=== PATIENT | male | born 1950 | race Caucasian/White ===

== ENCOUNTER → 2018-03-08 | Outpatient (CLI) | payer MEDICARE | END | disposition home or self-care (01) | LOC: RAD 11:12 | DX: M51.37 Other intervertebral disc degeneration, lumbosacral region (principal) ==

== ENCOUNTER → 2018-03-24 | Outpatient (CLI) | payer MEDICARE | END | disposition home or self-care (01) | LOC: CT 15:00 | DX: M47.896 Other spondylosis, lumbar region (principal); M43.16 Spondylolisthesis, lumbar region; M48.14 Ankylosing hyperostosis [Forestier], thoracic region; G95.29 Other cord compression; M41.84 Other forms of scoliosis, thoracic region; M51.26 Other intervertebral disc displacement, lumbar region ==

== ENCOUNTER → 2018-04-14 | Outpatient (CLI) | payer MEDICARE ==
[2018-04-14 09:08] LABS: BILIRUBIN NEGATIVE (NEGATIVE); BLOOD NEGATIVE (NEGATIVE); CLARITY CLEAR (CLEAR); COLOR YELLOW (YELLOW); GLUCOSE NEGATIVE (NEGATIVE); KETONE NEGATIVE (NEGATIVE); LEUKO ESTERASE NEGATIVE (NEGATIVE); NITRITE NEGATIVE (NEGATIVE); UROBILINOGEN 0.2 E.U./dl (0.2-1.0)
[2018-04-14 09:08] LABS: BASO # 0.1 10*3/uL (0.0-0.1); EOS # 0.6 10*3/uL (0.0-0.4); EOS % 7.8 % (1.0-4.0); HEMATOCRIT 40.8 % (42.0-52.0); HEMOGLOBIN 13.6 g/dl (14.0-18.0); LYMPH # 1.8 10*3/uL (1.3-4.4); MEAN CELL VOLUME 94.9 fl (80.0-94.0); MEAN CORPUSCULAR HGB 31.6 pg (27.0-31.0); MEAN CORPUSCULAR HGB CONC 33.3 g/dl (33.0-37.0); MEAN PLATELET VOLUME 11.5 fl (9.6-12.3); MONO # 0.6 10*3/uL (0.1-1.0); MONO % 7.9 % (3.0-9.0); NEUT # 4.1 10*3/uL (2.3-7.9); PLATELET COUNT AUTOMATED 177 10*3/uL (130-400); RED CELL DISTRI WIDTH 13.5 % (0-14.5); WHITE BLOOD COUNT 7.1 10*3/uL (4.8-10.8)
[2018-04-14 09:15] LABS: WBC 0-2 wbc/hpf (0-5)
[2018-04-14 09:22] LABS: ALBUMIN 3.6 gm/dl (3.1-4.5); ALKALINE PHOSPHATASE 63 U/L (45-117); BUN 13 mg/dl (7-24); CHLORIDE 105 mmol/L (98-107); CREATININE 0.68 mg/dL (0.70-1.30); POTASSIUM 4.2 mmol/L (3.5-5.1); SGOT/AST 23 IU/L (3-35); SGPT/ALT 24 U/L (12-78); SODIUM 139 mmol/L (136-145); TOTAL PROTEIN 7.1 gm/dL (6.4-8.2)
== END | disposition home or self-care (01) ==
LOC: LAB 08:47 → CT 09:00
PROVIDERS: Urology
DX: Z12.5 Encounter for screening for malignant neoplasm of prostate (principal); N39.0 Urinary tract infection, site not specified; D40.0 Neoplasm of uncertain behavior of prostate; I10 Essential (primary) hypertension; N20.0 Calculus of kidney; K57.30 Diverticulosis of large intestine without perforation or abscess without bleeding

== ENCOUNTER → 2018-05-05 | Day surgery (SDC) | payer MEDICARE ==
[~2018-05-05] VITALS: Ht 172.7 cm; Wt 86.2 kg
[~2018-05-05] MED LIST: ZESTORETIC 10-1 EACH PO
--- NOTE | ~2018-05-05 | O ---
[place], [place] OPERATIVE NOTE NAME: PRINCE IZQUIERDO UNIT #: [id number] ROOM: DOCTOR: RUTH OROURKE MD BIRTHDATE: [birth year] DOS: 05/05/2018 GASTROENDOSCOPIC REPORT INDICATIONS: The patient is a 67-year-old, undergoing colonic screening. ALLERGIES: To no known medications. PAST MEDICAL HISTORY: Hypertension. PAST SURGICAL HISTORY: Skin cancer. MEDICATIONS: As reviewed. PROCEDURE: Today's procedure part of investigation is colonoscopy plus snare and piecemeal polypectomy, both. PREMEDICATION: Propofol. SCOPE: Olympus folding colonoscope 10L video. REPORT: After putting the patient in left lateral position and application of lubricant to the scope, the scope was introduced under direct visualization, advanced through the length of colon without difficulty. Base of the cecum was explored. Appendiceal orifice was identified, ileocecal valve was defined.. Sessile polypoid lesion in the sigmoid colon with ____ a large polypoid lesion with the snare was polypectomized. This was on top of a prominent fold. Tattoo marking of the fold also was done for future reference, and the patient extubated, tolerated procedure well. IMPRESSION: Multi-colonic polyps, status post piecemeal polypectomy, status post snare polypectomy. Supportive management otherwise. High fiber diet. Follow-up colonoscopy in 10 years unless patient has symptoms for which follow-up should be sooner. I thank you very much indeed. [place], [place] OPERATIVE NOTE NAME: PRINCE IZQUIERDO UNIT #: [id number] ROOM: DOCTOR: RUTH OROURKE MD BIRTHDATE: [birth year] RUTH OROURKE MD CM:OPRECORD:OPERATIVE NOTE [id number] RUTH OROURKE MD 05/15/18 [id number]
[2018-05-05 12:00] VITALS: BP 136/92
[2018-05-05 13:25] VITALS: BP 115/70
[2018-05-05 13:40] VITALS: BP 135/87
[2018-05-05 13:53] VITALS: BP 135/83
== END | disposition home or self-care (01) ==
LOC: SDC 05-02 11:00
DX: Z12.11 Encounter for screening for malignant neoplasm of colon (principal); K62.1 Rectal polyp; D12.5 Benign neoplasm of sigmoid colon; I10 Essential (primary) hypertension; J45.909 Unspecified asthma, uncomplicated; F17.210 Nicotine dependence, cigarettes, uncomplicated; Z98.890 Other specified postprocedural states; Z85.828 Personal history of other malignant neoplasm of skin; Z79.899 Other long term (current) drug therapy; Z82.49 Family history of ischemic heart disease and other diseases of the circulatory system

== ENCOUNTER → 2020-06-25 | Outpatient (CLI) | payer MEDICARE ==
[2020-06-25 11:03] LABS: HEMATOCRIT 45.4 % (42.0-52.0); MEAN CELL VOLUME 94.6 fl (80.0-94.0); MEAN CORPUSCULAR HGB 31.3 pg (27.0-31.0); MEAN PLATELET VOLUME 12.4 fl (9.6-12.3); RED BLOOD COUNT 4.8 10*6/uL (4.50-5.90); RED CELL DISTRI WIDTH 12.8 % (0-14.5); WHITE BLOOD COUNT 5.3 10*3/uL (4.8-10.8)
[2020-06-25 11:28] LABS: ALBUMIN 3.6 gm/dl (3.1-4.5); ALKALINE PHOSPHATASE 57 U/L (45-117); BUN 15 mg/dl (7-24); CHLORIDE 108 mmol/L (98-107); CHOLESTEROL 178 mg/dL (<200); CREATININE 0.87 mg/dL (0.70-1.30); HDL CHOLESTEROL 50 mg/dl (40-60); LDL CHOLESTEROL 115 mg/dL (9-159); POTASSIUM 4.1 mmol/L (3.5-5.1); SGOT/AST 20 IU/L (3-35); SGPT/ALT 23 U/L (12-78); SODIUM 136 mmol/L (136-145); TOTAL PROTEIN 7.5 gm/dL (6.4-8.2); TRIGLYCERIDES 64 mg/dl (<150); VLDL CHOLESTEROL 13 mg/dL (6-40)
== END | disposition home or self-care (01) ==
LOC: LAB 10:20
PROVIDERS: Registered Nurse Flight
DX: Z12.5 Encounter for screening for malignant neoplasm of prostate (principal); J44.9 Chronic obstructive pulmonary disease, unspecified; I10 Essential (primary) hypertension; Z13.220 Encounter for screening for lipoid disorders; Z72.0 Tobacco use

== ENCOUNTER → 2023-01-25 | Outpatient (CLI) | payer MEDICARE | END | disposition home or self-care (01) | LOC: RAD 09:28 | PROVIDERS: ATTEND Internal Medicine | DX: M17.0 Bilateral primary osteoarthritis of knee (principal) ==

== ENCOUNTER → 2024-07-05 | Outpatient (CLI) | payer MEDICARE | END | disposition home or self-care (01) | LOC: RAD 12:06 | PROVIDERS: ATTEND Nurse Practitioner Family | DX: M47.816 Spondylosis without myelopathy or radiculopathy, lumbar region (principal); M16.0 Bilateral primary osteoarthritis of hip; M54.31 Sciatica, right side ==

== ENCOUNTER → 2024-12-31 | Outpatient (CLI) | payer MEDICARE | END | disposition home or self-care (01) | LOC: US 02:23 → CT 11:00 | PROVIDERS: ATTEND Internal Medicine Nephrology | DX: Z12.2 Encounter for screening for malignant neoplasm of respiratory organs (principal); J43.9 Emphysema, unspecified; I73.9 Peripheral vascular disease, unspecified; I71.21 Aneurysm of the ascending aorta, without rupture; I25.10 Atherosclerotic heart disease of native coronary artery without angina pectoris; R91.8 Other nonspecific abnormal finding of lung field; F17.210 Nicotine dependence, cigarettes, uncomplicated ==